=== PATIENT | male | born 1980 | race Caucasian/White ===

== ENCOUNTER 2018-03-02 09:56 | Day surgery (SDC) | payer OTHER ==
[2018-03-02 11:04] LABS: Calc. Creatinine Clearance 170 mL/min (70-130); Estimated GFR-MDRD Greater than 90
[2018-03-02] MEDS ORDERED: Midazolam HCl 2 mg/2 ml Vial ONE (11:54)
[2018-03-02] MEDS ORDERED: Fentanyl 100 MCG/2 ML VIAL ONE (12:15)
[2018-03-02] MEDS ORDERED: Iopamidol-M 200 41% 10 ML VIAL FS ONE (13:08)
--- NOTE | 2018-03-02 15:15 | RAD ---
CERVICAL SPINE THREE VIEWS: HISTORY: Lumbar radiculopathy. Lumbar fusion. Spondylolisthesis. Intervertebral disk disorder. COMPARISON: 04/10/2017 FINDINGS: Lateral neutral, lateral flexion, and lateral extension views demonstrate five lumbar type vertebral bodies. In the neutral position, there is 1.9 mm of retrolisthesis of L2 upon L3 and 2.7 mm of retro listhesis of L4 upon L5. Upon extension, there is no significant retrolisthesis of L2 upon L3 or L4 upon L5. Upon flexion, no significant retrolisthesis of L2 upon L3 or L4 upon L5. There are bilater al transpedicular screws at L4, L5, and S1 without perihardware lucency. There is a disk prosthesis at L4-L5 and at L5-S1. IMPRESSION: 1. Redemonstration of effusion changes at L4, L5, and S1. 2. Grade 1 retrolisthesis of L2 upon L3 and L4 upon L5, which appear to resolve upon extension and f lexion. POS: OFF
--- NOTE | 2018-03-02 15:56 | CT ---
CT GUIDED LUMBAR PUNCTURE CT LUMBAR SPINE POST MYELOGRAM: Date: 03-02-18 History: Patient with history of prior low back surgery. The patient continues to have low back pain. Spondylolisthesis lumbar region. Technique: After informed consent was obtained, the patient was placed on the CT scan table in the pr one position. Sedation was performed by the anesthesiology department. Limited noncontrast CT scan wa s obtained through the lower lumbar spine. An area was marked and then meticulously prepped and drape d in the usual sterile fashion. Skin subcutaneous tissues were infiltrated with buffered 1% Lidocaine for local anesthesia. A 22 gauge spinal needle was advanced into the central spinal canal and three axial noncontrasted CT images were obtained to confirm placement of the tip of the needle. Inter stylet was removed with ret urn of clear cerebrospinal fluid. As a result, approximately 8 ml of Isovue M200 were instilled into the thecal sac. After approximately 3 ml of contrast was instilled into the thecal sac, three axial n oncontrast CT images were obtained, again confirming the placement of a the contrast in the thecal sa c. After 8 ml of contrast was instilled into the thecal sac, the inter stylet was replaced and the ne edle was removed. Hemostasis was achieved with direct pressure and a dry sterile dressing was placed. Patient was placed in a supine position, and CT lumbar spine was then performed. The patient tolerated the procedure well and without immediate complication. Patient was transported to recovery area for further monitoring prior to discharge. IMPRESSION: 1. Technically successful CT myelogram. CT LUMBAR SPINE POST MYELOGRAM: Technique: Contiguous axial CT images are obtained from the T12-L1 level to the upper sacrum. Sagitta l and coronal reformatted images are provided. FINDINGS: There are post-surgical changes related to posterior fusion with bipedicular screws and posterior bethany s transfixing the L4-5 and L5-S1 levels. No hardware complication is seen. The vertebral body heights are within normal limits. No fracture or subluxation is seen involving the lumbar spine. T12-L1: No disc bulge or disc herniation. Central spinal canal and neural foramina are patent. L1-2: There is no disc bulge or disc herniation. Central spinal canal and neural foramina are patent. L2-3: There is no disc bulge or disc herniation. Central spinal canal and neural foramina are patent. L3-4: There is no disc bulge or disc herniation. The central spinal canal and neural foramina are pat ent. L4-5: Intradiscal prosthesis is present at this level. There is streak artifact which does limit eval uation, but the central spinal canal at this level is widely patent. Neural foramina also appear wesley nt at this level. L5-S1: There is streak artifact through this level but the central spinal canal is patent. There is a rtifact which limits adequate evaluation of each neural foramina, but there is certainly no bony encr oachment on either neural foramen and each neural foramen does appear patent. Laminectomy defects are seen at L4 and L5. There is decreased attenuation seen in the soft tissues po sterior to the level of the laminectomy defects likely related to scarring. No defined fluid collecti on is appreciated. Sclerotic densities are seen within the right iliac bone which have a nonaggressive appearance. IMPRESSION: 1. Post-surgical changes related to posterior fusion at the L4-5 and L5-S1 levels. No hardware compli cation is seen. 2. Central spinal canal is widely patent at all levels of the lumbar spine. Neural foramina at the L5 -S1 level are partially obscured due to streak artifact from pedicular screws, but the neural foramin a otherwise appear patent at all levels of the lumbar spine. POS: LATONIA
[2018-03-02] MEDS ORDERED: PROPOFOL 200 MG/20 ML VIAL ONE (16:14)
== END 2018-03-02 14:10 | disposition home or self-care (01) ==
LOC: SDC/OP 09:56
PROVIDERS: ATTEND Neurological Surgery
PROC: B02B1ZZ Computerized Tomography (CT Scan) of Spinal Cord using Low Osmolar Contrast (ICD-10-PCS; principal; 2018-03-02)
DX: M51.17 Intervertebral disc disorders with radiculopathy, lumbosacral region (principal); K21.9 Gastro-esophageal reflux disease without esophagitis; F31.9 Bipolar disorder, unspecified; M10.9 Gout, unspecified; Z98.1 Arthrodesis status
CPT/HCPCS: 72100; 72132; 77002; 82565; J2250; J2704; J3010

== ENCOUNTER 2020-05-30 09:43 | Outpatient (CLI) | payer OTHER ==
--- NOTE | 2020-05-30 10:55 | MRI ---
MR of the right shoulder without contrast INDICATION: Right shoulder pain. TECHNIQUE: Sagittal T1, axial and coronal PD fat sat, sagittal and coronal T2 fat sat images were obt ained of the right shoulder. COMPARISON: None. FINDINGS: Motion artifact limits image detail. Rotator cuff: There is a moderate grade intrasubstance tear involving the mid to posterior infraspina tus at the footprint measuring 0.7 x 1.3 cm in its greatest mediolateral and AP dimensions respectively. The tear is best seen on image 18 of series 4 and image 9 of series 7. There is mild srinivaasn praspinatus and infraspinatus tendinosis.. Glenohumeral joint: Articular cartilage is intact. Glenoid labrum: Intact Biceps tendon and biceps anchor: Intact and located. Acromion clavicular joint: There is mild AC joint osteoarthrosis. Subacromial subdeltoid space: Small amount of fluid is seen within the subacromial subdeltoid bursa. Axillary region: No lymphadenopathy. Surrounding shoulder musculature: Normal. No evidence of atrophy or strain. IMPRESSION: 1. Mild supraspinatus and infraspinatus tendinosis with a moderate grade intrasubstance tear involvin g the mid to posterior infraspinatus at the footprint 2. Mild AC joint osteoarthrosis. 3. Mild amount of fluid in the subacromial subdeltoid space can be seen with mild bursitis.
== END 2020-05-30 09:44 | disposition home or self-care (01) ==
LOC: SCSMRI 09:43
PROVIDERS: ATTEND Orthopaedic Surgery
DX: M25.511 Pain in right shoulder (principal); M19.011 Primary osteoarthritis, right shoulder; M75.101 Unspecified rotator cuff tear or rupture of right shoulder, not specified as traumatic; M75.51 Bursitis of right shoulder; M75.81 Other shoulder lesions, right shoulder

== ENCOUNTER 2020-07-04 05:55 | Day surgery (SDC) | payer OTHER ==
[2020-07-02 12:31] VITALS: BMI 28.7
[2020-07-04] MEDS ORDERED: Lidocaine 1% (PF) 30 ML VIAL ONE (06:46)
[2020-07-04] MEDS ORDERED: Fentanyl 100 MCG/2 ML VIAL ONE ×2 (07:06→07:19)
[2020-07-04] MEDS ORDERED: Midazolam HCl 2 mg/2 ml Vial ONE ×2 (07:06→07:19)
[2020-07-04] MEDS ORDERED: Dexamethasone 20 MG/5 ML VIAL ONE (09:39)
[2020-07-04] MEDS ORDERED: Ondansetron PF 4 MG/2 ML Vial ONE (09:39)
[2020-07-04] MEDS ORDERED: Bupivacaine HCl 0.5%/Epinephrine 1:200,000/PF 30 ml Vial ONE (09:39)
[2020-07-04] MEDS ORDERED: PROPOFOL 200 MG/20 ML VIAL ONE (09:39)
--- NOTE | 2020-07-04 16:12 | OP ---
DATE OF PROCEDURE: 07/04/2020 PREOPERATIVE DIAGNOSES: 1. Right shoulder adhesive capsulitis. 2. Right cubital tunnel syndrome. POSTOPERATIVE DIAGNOSES: 1. Right shoulder adhesive capsulitis. 2. Right cubital tunnel syndrome. PROCEDURE PERFORMED: 1. Right closed shoulder manipulation. 2. Right open cubital tunnel release. 3. Placement of long-arm splint, right upper extremity. FERMENTATION ENGINEER: None. ESTIMATED BLOOD LOSS: Minimal. COMPLICATIONS: None. He went to recovery room in stable condition. He had a general anesthetic. He also had a one time block of the right upper extremity. There were no implants. INDICATIONS: A 39-year-old male who is months out from a workers comp injury upon which he ran his right upper extremity into a large appliance, and since that time, he has been having difficulty with right shoulder pain as well as numbness and tingling in his ulnar two digits. He was found to have cubital tunnel syndrome on an EMG/NCV as well as felt to have significant adhesive capsulitis as in the clinic he demonstrates very poor painful range of motion. At this time, he is presenting for closed manipulation of the right shoulder and right open cubital tunnel release. DESCRIPTION OF PROCEDURE: After all appropriate consent forms were explained and signed, he was taken to the operating room and at this time was given general anesthetic. We then carefully and slowly manipulated the shoulder, obtaining full forward flexion and approximately 35 degrees of external rotation without complication. Once this was done, a tourniquet was placed on his right arm and the right arm was prepped and draped in standard surgical fashion. Incision line was drawn out between the medial epicondyle and the olecranon and at this time, the limb was exsanguinated, tourniquet taken up to 250 mmHg. Using loupe magnification, a 15-blade was used to incise down through skin only. Bipolar cautery was used to coagulate any brisk venous bleeding. We then used scissor dissection to free up the ulnar nerve from proximal on the brachium down distally to the first motor branch. Once this had been accomplished, we then swept the soft tissue off the medial flexor mass, so that the nerve did rest comfortably in this position postsurgically. At this time, moist Ray-Beny sponge was placed. Tourniquet was let down. Any brisk venous bleeding was then coagulated using the bipolar. At this time, we then used multiple Vicryl sutures to close our cubital tunnel so that the nerve could not rollback into this. We then used 2-0 Vicryl and nylon sutures to close the skin. At this time, soft tissue dressing was applied as well as a long-arm posterior splint. The patient was then awakened, he was taken to recovery room in stable condition. All counts correct at the end of the case. He did receive preoperative IV antibiotics. Job ID: [id number]
== END 2020-07-04 11:04 | disposition home or self-care (01) ==
LOC: SDC 05:55
PROVIDERS: ATTEND Orthopaedic Surgery
PROC: 01N40ZZ Release Ulnar Nerve, Open Approach (ICD-10-PCS; principal; 2020-07-04)
PROC: 3E0T3BZ Introduction of Anesthetic Agent into Peripheral Nerves and Plexi, Percutaneous Approach (ICD-10-PCS; principal; 2020-07-04)
PROC: 0RNJXZZ Release Right Shoulder Joint, External Approach (ICD-10-PCS; principal; 2020-07-04)
DX: G56.21 Lesion of ulnar nerve, right upper limb (principal); M75.01 Adhesive capsulitis of right shoulder; M19.011 Primary osteoarthritis, right shoulder; G89.18 Other acute postprocedural pain; K21.9 Gastro-esophageal reflux disease without esophagitis; M10.9 Gout, unspecified; Z87.891 Personal history of nicotine dependence; Z79.899 Other long term (current) drug therapy; W22.8XXA Striking against or struck by other objects, initial encounter; Y99.0 Civilian activity done for income or pay
CPT/HCPCS: J0670; J0690; J1100; J2001; J2250; J2405; J2704; J3010

== ENCOUNTER 2020-09-04 06:18 | Outpatient (CLI) | payer BC, OTHER ==
[2020-09-04 09:07] LABS: Bilirubin Neg (Negative); Blood, Urine 25 (Negative); Clarity Clear (Clear); Glucose, Urine (Dipstick) Normal (Negative); Ketone, Urine Negative (Negative); Leukocyte Negative (Negative); Nitrite Negative (Negative); Protein, Urine (Dipstick) Negative (Neg-Trace); Specific Gravity, Urine 1.015 (1.002-1.036); Urobilinogen Normal mg/dL (Less than 2)
[2020-09-04 09:12] LABS: #Basophils 0.1 10x3/uL (0.0-0.2); #Eosinphils 0.5 10x3/uL (0.0-0.5); #Monocytes 0.8 10x3/uL (0.0-1.1); #Neutrophils 3.1 10x3/uL (1.5-8.4); %Basophils 0.7 % (0.0-2.0); %Eosinophils 6.2 % (0.0-6.0); %Lymphocytes 39.6 % (18.0-47.0); %Monocytes 10.7 % (0.0-10.0); %Neutrophils 42.2 % (40.0-75.0); Mean Corpuscular HGB CONC 33.8 G/DL (32.0-36.0); Mean Corpuscular Hemoglobin 31.9 PG (27.0-33.0); Mean Corpuscular Volume 94.5 fl (80.0-100.0); Mean Platelet Volume 9.9 fl (7.4-10.4); Platelet Count 260 10x3/uL (130-400); RBC Distribution Width 12.4 % (11.5-14.5); White Blood Cell (WBC) Count 7.2 10x3/uL (4.5-11.0)
[2020-09-04 09:15] LABS: Bacteria/HPF Rare-Few HPF (None Seen); RBC/HPF 0-3 HPF (0-3); Squamous Epithelial 0-3 HPF (0-3); WBC/HPF 0-3 HPF (0-3)
[2020-09-04 09:16] LABS: Anion Gap 19 mmol/L (10-20); BUN (Urea Nitrogen) 15 mg/dL (8.9-20.6); Calc. Creatinine Clearance 0 mL/min (70-130); Calcium 8.6 mg/dL (7.8-10.44); Carbon Dioxide 20 mmol/L (22-29); Chloride 108 mmol/L (98-107); Estimated GFR-MDRD Greater than 90; Glucose 97 mg/dL (70-105); Potassium 4.5 mmol/L (3.5-5.1); Sodium 142 mmol/L (136-145)
--- NOTE | 2020-09-04 23:45 | EKG ---
Test Reason : PREOP Blood Pressure : / mmHG Vent. Rate : 069 BPM Atrial Rate : 069 BPM P-R Int : 132 ms QRS Dur : 084 ms QT Int : 388 ms P-R-T Axes : 062 078 070 degrees QTc Int : 415 ms Sinus rhythm with marked sinus arrhythmia Otherwise normal ECG Confirmed by Sherry HORVATH ([id number]) on 09/04/2020 11:45:04 PM Referred By: IERO Confirmed By:Sherry HORVATH
[2020-09-05 12:56] LABS: SARS-CoV-2 MS2 Positive; SARS-CoV-2 N Gene Negative; SARS-CoV-2 S Gene Negative; SARS-CoV-2 by NAA Not Detected (NotDetected); SARS-CoV-2 orf1ab Negative
== END 2020-09-04 06:19 | disposition home or self-care (01) ==
LOC: LABBT 06:18
PROVIDERS: ATTEND Orthopaedic Surgery
DX: Z01.818 Encounter for other preprocedural examination (principal); M25.511 Pain in right shoulder; M19.011 Primary osteoarthritis, right shoulder; Z20.828 Contact with and (suspected) exposure to other viral communicable diseases
CPT/HCPCS: 80048; 81001; 85025; 87635; 93005; 93010; U0003

== ENCOUNTER 2020-09-07 08:26 | Day surgery (SDC) | payer OTHER ==
[2020-09-06 12:21] VITALS: BMI 28.7
[2020-09-07] MEDS ORDERED: Ropivacaine 0.5% HCl/PF (150 MG/30 ML VIAL) ONE (10:23)
[2020-09-07] MEDS ORDERED: Dexamethasone 20 MG/5 ML VIAL ONE (10:23)
[2020-09-07] MEDS ORDERED: Ondansetron PF 4 MG/2 ML Vial ONE (10:23)
[2020-09-07] MEDS ORDERED: PROPOFOL 200 MG/20 ML VIAL ONE (10:23)
[2020-09-07] MEDS ORDERED: Rocuronium Bromide 10 MG/ML (10ML VIAL) ONE (10:23)
[2020-09-07] MEDS ORDERED: Ropivacaine 0.2% HCl/PF (40 MG/20 ML VIAL) ONE (10:23)
[2020-09-07] MEDS ORDERED: Lidocaine 2% Jelly 5 ML TUBE ONE (10:28)
[2020-09-07] MEDS ORDERED: Fentanyl 100 MCG/2 ML VIAL ONE ×4 (10:28→13:29)
[2020-09-07] MEDS ORDERED: Midazolam HCl 2 mg/2 ml Vial ONE ×2 (10:32→11:02)
[2020-09-07] MEDS ORDERED: Fentanyl 100 MCG/2 ML VIAL IV PRN (10:44)
[2020-09-07] MEDS ORDERED: traMADol HCl 50 MG TAB PO PRN ×2 (10:45)
[2020-09-07] MEDS ORDERED: Promethazine HCl 25 MG/ML VIAL IM PRN (10:45)
[2020-09-07] MEDS ORDERED: Ropivacaine 0.2% 550 ML 550 ML NERVE BLCK SCH (10:45)
[2020-09-07] MEDS ORDERED: Ondansetron PF 4 MG/2 ML Vial IVP PRN (10:45)
[2020-09-07] MEDS ORDERED: Ketorolac Tromethamine 30 MG/ML VIAL IVP PRN (10:45)
[2020-09-07] MEDS ORDERED: HYDROcodone/Acetaminophen 10/325 mg Tablet PO PRN ×2 (10:45)
[2020-09-07] MEDS ORDERED: Zolpidem Tartrate 5 MG TAB PO PRN (10:45)
[2020-09-07] MEDS ORDERED: Lidocaine 1% w/Epinephrine 1:100K 20 ML VIAL ONE (11:29)
[2020-09-07] MEDS ORDERED: Bupivacaine 0.25% HCL 30 ML VIAL ONE (11:29)
[2020-09-07] MEDS ORDERED: Sodium Chloride 0.9% 10 ML ONE (14:08)
[2020-09-07] MEDS ORDERED: Lidocaine 1% (PF) 30 ML VIAL ONE (14:08)
[2020-09-07] MEDS ORDERED: Morphine 4 MG/ML VIAL ONE (14:23)
--- NOTE | 2020-09-07 18:20 | OP ---
DATE OF PROCEDURE: 09/07/2020 PREOPERATIVE DIAGNOSES: 1. Right shoulder partial undersurface tearing of the supraspinatus. 2. Posttraumatic acromioclavicular joint arthritis. POSTOPERATIVE DIAGNOSES: 1. Right shoulder partial undersurface tearing of the supraspinatus. 2. Posttraumatic acromioclavicular joint arthritis. PROCEDURES PERFORMED: 1. Right shoulder arthroscopy with debridement and shaving of partial undersurface tear of the supraspinatus, which was less than 10% of the thickness of the tendon. 2. Subacromial decompression. 3. Open distal clavicle excision. BLOOD LOSS: Less than 30 mL. ANESTHESIA: The patient had general anesthetic as well as a preoperative blocks. IMPLANTS: There were no implants. DISPOSITION: He went to recovery room in stable condition. INDICATIONS: This is a 40-year-old male who has injured his right shoulder a month ago, and at this time has failed nonoperative treatment for the shoulder and is presenting for a surgery on the shoulder. DESCRIPTION OF PROCEDURE: After all appropriate consent forms were explained and signed, he was taken to the operating room and at this time was given general anesthetic. Once the level of anesthesia was appropriate, he was rolled in the left lateral decubitus position with all bony prominences well padded. Axillary roll was placed underneath the left axilla and a beanbag was inflated to hold in this position. The arm was taken through full range of motion and then was suspended with 15 pounds in standard arthroscopic fashion. The right shoulder and upper extremity were than prepped and draped in standard surgical fashion. Bony anatomical landmarks were then drawn out and the subacromial space was infiltrated with Marcaine with epinephrine. At this time, a posterior portal was established and scope was placed into the shoulder joint. Anterior working portal was made using a needle localization technique. Diagnostic arthroscopy commenced within the shoulder joint. The humeral head and glenoid articular surfaces were found to be normal. No loose bodies were noted in the pouch. The subscapularis was noted to be normal. The labrum was found to be intact as was the biceps there was noted to be a small partial-thickness undersurface tear. This was debrided with a shaver. Once this was done, the scope was removed and replaced into the subacromial space. A working portal was made at this time. All the bursa was removed with the shaver as well as SERFAS energy to coagulate any brisk venous bleeding. We then performed a small subacromial decompression using the SERFAS energy and shaver. We were then able to saad the AC joint with a needle. At this time, scope was removed and the shoulder was drained. At this time, a 15 blade was used to make an oblique incision over the AC joint down to the skin, and at this time, the Bovie was used to clean any brisk venous bleeding. Full-thickness periosteal flap was used to expose the distal clavicle and a Hohmann retractor was placed anterior and posterior. Rongeur was used to clean out the AC joint and remaining soft tissue remnant, and at this time, a saw was used to remove approximately 1 cm distal clavicle. Once this was done, we smoothed off the bone with a rasp and then placed a small amount of bone wax onto the bleeding cancellous bone. We then thoroughly irrigated and dried the wound and then closed our soft tissue sleeve with multiple interrupted Vicryl sutures followed by 2-0 Vicryl and nylon sutures to close the skin. Portals were closed with simple nylon stitch. Bulky sterile dressing was then applied. The patient was then awakened. He was taken to recovery room in stable condition. All counts were correct at the end of the case and he did receive preoperative IV antibiotics. Job ID: [id number] [facility]
== END 2020-09-07 16:00 | disposition home or self-care (01) ==
LOC: SDC 08:26
PROVIDERS: ATTEND Orthopaedic Surgery
PROC: 0RNJ4ZZ Release Right Shoulder Joint, Percutaneous Endoscopic Approach (ICD-10-PCS; principal; 2020-09-07)
PROC: 0LQ14ZZ Repair Right Shoulder Tendon, Percutaneous Endoscopic Approach (ICD-10-PCS; principal; 2020-09-07)
PROC: 0PB90ZZ Excision of Right Clavicle, Open Approach (ICD-10-PCS; principal; 2020-09-07)
DX: M75.111 Incomplete rotator cuff tear or rupture of right shoulder, not specified as traumatic (principal); M19.111 Post-traumatic osteoarthritis, right shoulder; G89.18 Other acute postprocedural pain; K21.9 Gastro-esophageal reflux disease without esophagitis; Z79.899 Other long term (current) drug therapy; Z87.891 Personal history of nicotine dependence
CPT/HCPCS: A4306; J0690; J1100; J2001; J2250; J2270; J2405; J2704; J2795; J3010; S0020

== ENCOUNTER 2021-07-12 09:26 | Outpatient (CLI) | payer OTHER, BC | END 2021-07-12 09:27 | disposition home or self-care (01) | LOC: TBSIIMAG 09:26 | PROVIDERS: ATTEND Neurological Surgery | DX: M54.5 Low back pain (principal); Z98.1 Arthrodesis status | CPT/HCPCS: 72100 ==